=== PATIENT | female | born 1980 | race African-American/Black ===

== ENCOUNTER 2020-01-01 06:47 | Emergency (ER) | payer OTHER ==
[~2020-01-01] VITALS: Ht 157.5 cm; Wt 72.1 kg
[2020-01-01] MEDS ORDERED: SODIUM CHLORIDE 0.9% 1000ML 1,000 ML IV STA (07:06)
[2020-01-01] MEDS ORDERED: ONDANSETRON HCL INJ 2MG/ML 2ML 2 MG/ML VIAL IV ONE (07:15)
[2020-01-01] MEDS ORDERED: KETOROLAC TROMETHAMINE 30 MG/ML VIAL IV ONE (07:15)
[2020-01-01] MEDS ORDERED: KETOROLAC TROMETHAMINE 30 MG/ML VIAL ONE (07:31)
[2020-01-01] MEDS ORDERED: SODIUM CHLORIDE 0.9% 1000ML 1,000 ML ONE (07:31)
[2020-01-01] MEDS ORDERED: ONDANSETRON HCL INJ 2MG/ML 2ML 2 MG/ML VIAL ONE (07:31)
[2020-01-01] MEDS ORDERED: HYDRALAZINE HCL 20 MG/ML VIAL IV STA (07:46)
[2020-01-01] MEDS ORDERED: INSULIN REGULAR, HUMAN 100 UNIT/1 ML 3ML VIAL IV ONE (08:15)
[2020-01-01] MEDS ORDERED: HYDRALAZINE HCL 20 MG/ML VIAL ONE (08:20)
--- NOTE | 2020-01-01 08:20 | Emergency Department Note ---
History of Present Illnes History of Present Illness Chief Complaint: Abdominal Complaints History of Present Illness This is a 39 year old A[employer] female. Pt reports that since 0300 this morning she has had right sided abd pain in the upper and lower part with nausea and vomiting. Pt rates pain 12/07. . 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 Any updates have been documented here. Past Medical History Recent Fever: No Clinical Suspicion of Infectio: No New/Unexplained Change in Ment: No Past Medical History: None Past Surgical History: Social History Smoking Cessation: Never Smoker Counseling Performed: No Alcohol Use: None Any Illegal Drug Use: No Physically hurt or threatened: No Other Any Pre-Existing Lines (PICC,: No Review of Systems Review of Systems Constitutional: Reports no symptoms EENTM: Reports no symptoms Cardiovascular: Reports no symptoms Respiratory: Reports no symptoms Gastrointestinal: Reports as per HPI Genitourinary: Reports no symptoms Musculoskeletal: Reports no symptoms Integumentary: Reports no symptoms Neurological: Reports no symptoms Psychological: Reports no symptoms Endocrine: Reports no symptoms Hematological/Lymphatic: Reports no symptoms Physical Exam Related Data Allergies: Coded Allergies: No Known Allergies (Unverified , 01/01/20) Triage Vital Signs Vital Signs Date Time Temp Pulse Resp B/P (MAP) Pulse Ox O2 Delivery O2 Flow Rate FiO2 01/01/20 07:00 97.5 92 16 218/92 100 Room Air Vital signs reviewed: Yes Physical Exam CONSTITUTIONAL Constitutional: Present well-developed, Present well-nourished HENT HENT: Present normocephalic, Present atraumatic, Present oropharynx clear/moist, Present nose normal HENT L/R: Present left ext ear normal, Present right ext ear normal EYES Eyes: Reports PERRL, Reports conjunctivae normal NECK Neck: Present ROM normal PULMONARY Pulmonary: Present effort normal, Present breath sounds normal CARDIOVASCULAR Cardiovascular: Present regular rhythm, Present heart sounds normal, Present capillary refill normal, Present normal rate GASTROINTESTINAL Abdominal: Present soft, Present bowel sounds normal, Present tender (RL Q/flank) GENITOURINARY Genitourinary: Present exam deferred SKIN Skin: Present warm, Present dry MUSCULOSKELETAL Musculoskeletal: Present ROM normal NEUROLOGICAL Neurological: Present alert, Present oriented x 3, Present no gross motor or sensory deficits PSYCHOLOGICAL Psychological: Present mood/affect normal, Present judgement normal Results Laboratory Lab results reviewed: Yes Laboratory comments glucose 401 Imaging Imaging results reviewed: Yes Impressions right sided stone in the bladder Assessment & Plan Medical Decision Making MDM appendicitis, ruptured cysts, kidney stones Reassessment Reassessment time: 08:18 Reassessment no pain now Assessment & Plan Final Impression: (1) Right flank pain (2) Kidney stone on right side (3) Diabetes type 2, uncontrolled (4) Hypertensive urgency Depart Disposition: HOME, SELF-CARE Last Vital Signs Date Time Temp Pulse Resp B/P (MAP) Pulse Ox O2 Delivery O2 Flow Rate FiO2 01/01/20 07:00 97.5 92 16 218/92 100 Room Air Home Meds Active Scripts Ondansetron Hcl* (ZOFRAN*) 4 Mg Tablet, 4 MG SL Q6H PRN for NAUSEA, #14 MG 0 Refills Prov:ANNETTE PATEL MD 01/01/20 Acetaminophen/Codeine* (TYLENOL # 3*) 1 Ea Tab, 1 TAB PO Q4HR PRN for pain or cough, #30 Prov:ANNETTE PATEL MD 01/01/20 Amlodipine Besylate (AMLODIPINE BESYLATE) 5 Mg Tablet, 5 MG PO DAILY, #30 TAB Prov:ANNETTE PATEL MD 01/01/20 Losartan Potassium (LOSARTAN POTASSIUM) 25 Mg Tablet, 1 TAB PO DAILY for 30 Days Prov:ANNETTE PATEL MD 01/01/20 Glyburide (GLYBURIDE) 5 Mg Tablet, 5 MG PO DAILY, #30 TAB Prov:ANNETTE PATEL MD 01/01/20 Medications in the ED Ketorolac Tromethamine 30 mg ONCE ONCE IV ; Start 01/01/20 at 07:15; Stop 01/01/20 at 07:16; Status UNV Ondansetron HCl 4 mg ONCE ONCE IV ; Start 01/01/20 at 07:15; Stop 01/01/20 at 07:16; Status UNV Sodium Chloride 1,000 ml @ 0 mls/hr Q0M STAT IV ; Start 01/01/20 at 07:06; Stop 01/01/20 at 07:09; Status DC Physician Attestation Provider Attestation I have educated patient about diabetes, htn, potential hypoglycemic side effect of glyburide, the need to f/u with PCP closely. Pt verbally understands and agrees with the plans ANNETTE PATEL MD Jan 01, 2020 07:21
--- NOTE | 2020-01-01 09:21 | Diagnostic Imaging Report ---
CT of the abdomen and pelvis. Comparison: None Clinical History: Right abdominal pain last night Technique: Helical CT scan of the abdomen and pelvis was performed. Intravenous contrast administration was utilized. Oral contrast administration was not utilized. Coronal and sagittal reconstructions were generated from the raw data. Multiple images were submitted for interpretation. This exam was performed according to our departmental dose-optimization program which includes automated exposure control, adjustment of the mA and/or kV according to patient size Discussion: Inferior chest: Unremarkable. Liver: Unremarkable Spleen: Unremarkable Pancreas: Unremarkable Biliary tree and gallbladder: Unremarkable Adrenal glands: Unremarkable Kidneys and ureters: A small area of diminished enhancement in the medial cortex of the right kidney just above the hilum suggesting either a small focal area of infection such as pyelonephritis or less likely an infarction. There is also a small calcific density in the urinary bladder just beyond the right UVJ. This calcific density is approximately 3-4 mm in size. It probably represents a small ureteric calculus that has been passed down the right ureter into the urinary bladder and could explain the patient's symptoms. Also please note that there is slight asymmetrically in the size of the kidneys with right kidney being about 10 cm and the left kidney being 11.5 cm. Vasculature: Unremarkable Lymph nodes: Unremarkable Bowel: Unremarkable Pelvis: As above. Bilateral likely functional ovarian cysts. Peritoneum: Unremarkable Perineal compartments: unremarkable. Fluid: No free fluid Bones: Unremarkable Body wall: A small fat-containing umbilical hernia Impression: Please see above. Likely passage of a right ureteric calculus into the urinary bladder could explain the patient's symptoms. Clinical correlation is requested. Signed by: Cyrus Mock MD on 01/01/2020 9:18 AM
[2020-01-01] MEDS ORDERED: LOSARTAN POTASS25 MG PO (09:28)
[2020-01-01] MEDS ORDERED: GLYBURIDE5 MG PO (09:28)
[2020-01-01] MEDS ORDERED: AMLODIPINE BESYL5 MG PO (09:28)
[2020-01-01] MEDS ORDERED: TYLENOL # 31 EA PO (09:28)
[2020-01-01] MEDS ORDERED: ZOFRAN4 MG SL (09:28)
[2020-01-01 09:43] VITALS: BP 171/80
== END 2020-01-01 09:41 | disposition home or self-care (01) ==
LOC: FSED 07:18
DX: N20.0 Calculus of kidney (principal); M54.5 Low back pain; R10.11 Right upper quadrant pain; E11.65 Type 2 diabetes mellitus with hyperglycemia; I16.0 Hypertensive urgency
CPT/HCPCS: 36415; 74177; 80053; 81003; 81025; 82948; 85025; 96374; 96375; 99284; J0360; J1817; J1885; J2405; J7030

== ENCOUNTER 2023-09-18 17:23 | Emergency (ER) | payer OTHER ==
[~2023-09-18] VITALS: Ht 157.5 cm; Wt 77.1 kg
[~2023-09-18 17:23] MED LIST: AMLODIPINE BESYL5 MG PO; GLYBURIDE5 MG PO; LOSARTAN POTASS25 MG PO; TYLENOL # 31 EA PO; ZOFRAN4 MG SL
[2023-09-18] MEDS ORDERED: METFORMIN HCL500 M2 PO (17:41)
[2023-09-18] MEDS ORDERED: CLINDAMYCIN HC150 MG PO (18:00)
[2023-09-18 18:13] VITALS: PULSE 98; RESP 16; TEMP 98.8; O2SAT 98
== END 2023-09-18 18:13 | disposition home or self-care (01) ==
LOC: FSED 17:26
DX: N61.1 Abscess of the breast and nipple (principal); I10 Essential (primary) hypertension; E11.9 Type 2 diabetes mellitus without complications
CPT/HCPCS: 10060; 99283

== ENCOUNTER 2023-09-20 22:16 | Emergency (ER) | payer OTHER ==
[~2023-09-20] VITALS: Ht 157.5 cm; Wt 77.1 kg
[~2023-09-20 22:16] MED LIST changes: +CLINDAMYCIN HC150 MG PO; +METFORMIN HCL500 M2 PO
[2023-09-20 22:20] VITALS: PULSE 98; RESP 18; TEMP 98.9
[2023-09-20 23:46] VITALS: BP 156/62; PULSE 98; RESP 18; TEMP 98.6; O2SAT 100
== END 2023-09-20 22:51 | disposition home or self-care (01) ==
LOC: FSED 22:43
DX: Z48.01 Encounter for change or removal of surgical wound dressing (principal); L02.211 Cutaneous abscess of abdominal wall; I10 Essential (primary) hypertension; E11.9 Type 2 diabetes mellitus without complications
CPT/HCPCS: 99284